=== PATIENT | female | born 1975 | race Two or more races ===

== ENCOUNTER 2018-01-25 19:44 | Emergency (ER) | payer MEDICAID ==
[~2018-01-25] VITALS: Ht 170.2 cm; Wt 74.8 kg
[2018-01-25 23:48] VITALS: BP 140/80
== END 2018-01-26 00:04 | disposition home or self-care (01) ==
LOC: ER 19:44
DX: S63.502A Unspecified sprain of left wrist, initial encounter (principal); X58.XXXA Exposure to other specified factors, initial encounter; Y93.89 Activity, other specified; Y92.89 Other specified places as the place of occurrence of the external cause; Y99.8 Other external cause status
CPT/HCPCS: 73070; 73100; 81025

== ENCOUNTER 2018-04-21 22:21 | Emergency (ER) | payer MEDICAID ==
[~2018-04-21] VITALS: Ht 165.1 cm; Wt 63.5 kg
[2018-04-21 22:48] VITALS: BP 152/90
== END 2018-04-22 01:21 | disposition home or self-care (01) ==
LOC: ER 22:21
DX: R59.9 Enlarged lymph nodes, unspecified (principal)
CPT/HCPCS: 70490